=== PATIENT | male | born 1985 | race Two or more races ===

== ENCOUNTER 2020-09-22 17:35 | Emergency (ER) | payer MEDICARE, MEDICAID ==
[~2020-09-22] VITALS: Ht 185.4 cm; Wt 143.3 kg
[2020-09-22 17:41] VITALS: BP 141/89
== END 2020-09-22 18:16 | disposition home or self-care (01) ==
LOC: ER 17:35
DX: Z76.0 Encounter for issue of repeat prescription (principal)

== ENCOUNTER 2024-10-19 21:44 | Emergency (ER) | payer MEDICARE, MEDICAID ==
[~2024-10-19] VITALS: Ht 182.9 cm; Wt 139.5 kg
[2024-10-20 04:08] VITALS: BP 159/96; TEMP 98.3
[2024-10-20 04:09] VITALS: PULSE 94; RESP 16; O2SAT 96
[2024-10-20] MEDS ORDERED: [UNRECOGNIZED DRUG - CODE] PO (04:13)
[2024-10-20] MEDS ORDERED: LIDO3CRE16 EX (04:13)
--- NOTE | 2024-10-20 04:13 | ED.PDOC ---
History of Present Illness(SKN HPI Comments PT PRESENTED TO ED FOR "HOT & PAINFUL" RASH TO RIGHT LOWER BACK, LOWER ABDOMEN, AND GROIN AREA X2 DAYS. SKIN IRRITATION NOTED. DENIES FEVER, CHILLS, NAUSEA OR VOMITING. Chief Complaint: Rash Time Seen by MD: 21:47 Primary Care Provider: NONE History of Present Illness: Nurses Notes, Medications, Allergies Allergies: Coded Allergies: NO KNOWN ALLERGIES (Unverified , 04/13/16) Home Meds Active Scripts Lidocaine Hcl (Lidocaine) 3 % Cre, 1 APPLIC EX TID PRN for 7 Days, #30 GM APPLY A THIN LAYER TO THE AFFECTED AREA UP TO 3 TIMES A DAY NEEDED FOR PAIN Prov:WATSON,FLORA DRAPERY CUTTER MACHINE 10/20/24 Valacyclovir HCl (Valacyclovir Hydrochlorid) 1 Gm Tab, 1 GM PO TID for 7 Days, #21 TAB Prov:WATSONFLORA Luna DRAPERY CUTTER MACHINE 10/20/24 Information Source: Patient Mode of Arrival: Ambulatory Past Medical History PAST MEDICAL HISTORY: Depression, Schizophrenia Surgical History: Denies all surgeries Family History Family History: Unknown Social History Smoker: Cigarettes Alcohol: Denies ETOH Use Drugs: Denies Drug Use Lives In: Home Constitutional: denies: chills, diaphoresis, fatigue, fever, malaise, sweats, weakness, others EENTM: denies: blurred vision, double vision, ear bleeding, ear discharge, ear drainage, ear pain, ear ringing, eye pain, eye redness, hearing loss, mouth pain, mouth swelling, nasal discharge, nose bleeding, nose congestion, nose pain, photophobia, tearing, throat pain, throat swelling, voice changes, others Respiratory: denies: cough, hemoptysis, orthopnea, SOB at rest, shortness of breath, SOB with excertion, stridor, wheezing, others Cardiovascular: denies: chest pain, dizzy spells, diaphoresis, Dyspnea on e xertion, edema, irregular heart beat, left arm pain, lightheadedness, palpitations, PND, syncope, others Gastrointestinal: denies: abdomen distended, abdominal pain, blood streaked bowels, constipated, diarrhea, dysphagia, difficulty swallowing, hematemesis, melena, nausea, poor appetite, poor fluid intake, rectal bleeding, rectal pain, vomiting, others Genitourinary: denies: burning, dysuria, flank pain, frequency, hematuria, incontinence, penile discharge, penile sore, pain, testicle pain, testicle swelling, urgency, others Neurological: denies: dizziness, fainting, headache, left sided numbness, left sided weakness, numbness, paresthesia, pre-existing deficit, right sided numbness, right sided weakness, seizure, speech problems, tingling, tremors, weakness, others Musculoskeletal: denies: back pain, gout, joint pain, joint swelling, muscle pain, muscle stiffness, neck pain, others Integumetry: reports: rash (ABDOMEN); denies: bruises, change in color, change in hair/nails, dryness, laceration, lesions, lumps, wounds, others Allergic/Immunocompromised: denies: Difficulty Healing, Frequent Infections, Hives, Itching, others Hematologic/Lymphatic: denies: anemia, blood clots, easy bleeding, easy bruising, swollen glands, others Endocrine: denies: excessive hunger, excessive sweating, excessive thirst, excessive urination, flushing, intolerance to cold, intolerance to heat, unexplained weight gain, unexplained weight loss, others Psychiatric: denies: anxiety, bipolar disorder, depression, hopeless, panic disorder, schizophrenia, sleepless, suicidal, others Physical Exam General Appearance: No Apparent Distress, Normal HEENT: Pharynx Normal Neck: Full Range of Motion, Non-Tender Respiratory: Chest Non-Tender, Lungs Clear, No Respiratory Distress, Normal Breath Sounds Cardiovascular: No Edema, No JVD, No Murmur, No Gallop, Normal Peripheral Pulses, Regular Rate/Rhythm Breast Exam: Deferred Gastrointestinal: No Organomegaly, Non Tender, No Pulsatile Mass, Normal Bowel Sounds, Soft Genitalia: Deferred Pelvic: Deferred Rectal: Deferred Extremities: Normal capillary refill, Normal inspection, Normal range of motion, Non-tender, No pedal edema Musculoskeletal : Apperance: Normal Neurologic: Alert, wound care nurse II-XII nml as Tested, No Motor Deficits, Normal Affect, Normal Mood, No Sensory Deficits Cerebellar Function: Normal Reflexes: Normal Skin: Dry, Normal Color, Rash (HERPETIC RASH WITHOUT OPEN LESIONS ACROSS LOWER BACK T11-12 DERMATOME INTO ABDOMEN WITHOUT STREAKING OR NOTED DRAINAGE OR EXCORIATIONS), Warm Lymphatic: No Adenopathy Was a procedure done? Was a procedure done?: No Differential Diagnosis (INTG) Differential Diagnosis: Cellulitis Differential Diagnosis: Abscess, Impetigo, Intertrigo, Scabies, Scarlet Fever X-Ray, Labs, Meds, VS Vital Signs Date Time Temp Pulse Resp B/P (MAP) Pulse Ox O2 Delivery O2 Flow Rate FiO2 10/20/24 04:09 94 16 96 Room Air* 0 21 21 10/20/24 04:08 98.3 94 14 159/96 (117) 96 98.3 10/19/24 22:31 98.7 107 16 146/96 (113) 99 98.7 X-Ray, Labs, Meds, VS Comment LIKELY HERPES ZOSTER ALONG T11-12 DERMATOME. SCRIPT TRIAL OF VALACYCLOVIR AND LIDOCAINE CREAM TO PATIENT'S PHARMACY ON FILE. ADVISED TO TAKE MEDICATIONS PRESCRIBED SIDE EFFECTS DISCUSSED. ADVISED TO FOLLOW UP WITH HIS PCP IN 2 DAYS FOR RE-EVALUATION. ADVISED ON ER RETURN PRECAUTIONS PATIENT INDICATES UNDERSTANDING AND AGREES WITH DISCHARGE PLAN OF CARE. Time of 1ST Reevaluation: 04:07 Reevaluation 1ST: Unchanged Patient Education/Counseling: Diagnosis, Treatment, Prognosis, Need For Follow Up Family Education/Counseling: Diagnosis, Treatment, Prognosis, Need For Follow Up Departure 1 Departure Time of Disposition: 04:07 Impression: Primary Impression: Herpes zoster infection Qualified Codes: B02.9 - Zoster without complications Disposition: 01 HOME / SELF CARE / HOMELESS Condition: Stable e-Prescriptions Lidocaine Hcl (Lidocaine) 3 % Cre 1 APPLIC EX TID PRN for 7 Days, #30 GM APPLY A THIN LAYER TO THE AFFECTED AREA UP TO 3 TIMES A DAY NEEDED FOR PAIN Prov: FLORA CHAUDHARI 10/20/24 Valacyclovir HCl (Valacyclovir Hydrochlorid) 1 Gm Tab 1 GM PO TID for 7 Days, #21 TAB Prov: FLORA CHAUDHARI 10/20/24 Discharged With: Relative (Father) Critical Care Note Critical Care Time?: No Stability Stability form required: No FLORA CHAUDHARI October 20, 2024 04:13
== END 2024-10-20 04:28 | disposition home or self-care (01) ==
LOC: ER 21:44
DX: B02.9 Zoster without complications (principal); F20.9 Schizophrenia, unspecified; F17.210 Nicotine dependence, cigarettes, uncomplicated; Z79.624 Long term (current) use of inhibitors of nucleotide synthesis

== ENCOUNTER 2024-10-20 02:31 | Emergency (ER) | payer MEDICARE, MEDICAID ==
[2024-10-20] MEDS ORDERED: [UNRECOGNIZED DRUG - CODE] PO (04:13)
[2024-10-20] MEDS ORDERED: LIDO3CRE16 EX (04:13)
== END 2024-10-20 02:46 | disposition left against medical advice (07) ==
LOC: ER 02:31
DX: R21 Rash and other nonspecific skin eruption (principal); Z53.21 Procedure and treatment not carried out due to patient leaving prior to being seen by health care provider